=== PATIENT | female | born 1995 | race Caucasian/White ===

== ENCOUNTER 2016-06-20 12:40 | Emergency (ER) | payer BC ==
[2016-06-20 12:40] VITALS: O2SAT 98
[2016-06-20] MEDS ORDERED: LIDOCAINE HCL 1% MDV SOL SC ONE (12:52)
[2016-06-20] MEDS ORDERED: LIDOCAINE HCL 1% MPF SOL ONE (12:53)
[2016-06-20 13:09] VITALS: BP 139/88; PULSE 80; RESP 16; TEMP 99.7
[2016-06-20] MEDS ORDERED: BACITRACIN 500 U/GM OIN TOP ONE ×2 (13:14→13:16)
== END 2016-06-20 13:50 | disposition home or self-care (01) ==
LOC: ED 12:40
DX: S61.011A Laceration without foreign body of right thumb without damage to nail, initial encounter (principal); W25.XXXA Contact with sharp glass, initial encounter; Y93.G1 Activity, food preparation and clean up
CPT/HCPCS: 99283; J2001

== ENCOUNTER 2018-04-24 07:58 | Emergency (ER) | payer OTHER, BC ==
[2018-04-24 08:04] VITALS: RESP 16; TEMP 97.7
[2018-04-24 09:16] VITALS: BP 126/85; PULSE 74; O2SAT 98
== END 2018-04-24 09:03 | disposition home or self-care (01) | DRG 552 ==
LOC: ED 07:58
DX: M54.6 Pain in thoracic spine (principal); M79.605 Pain in left leg; Z04.1 Encounter for examination and observation following transport accident; R55 Syncope and collapse; R40.2362 Coma scale, best motor response, obeys commands, at arrival to emergency department; R40.2142 Coma scale, eyes open, spontaneous, at arrival to emergency department; R40.2252 Coma scale, best verbal response, oriented, at arrival to emergency department
CPT/HCPCS: 99283